=== PATIENT | male | born 1980 | race Asian ===

== ENCOUNTER 2020-09-05 13:38 | Emergency (ER) | payer MEDICAID, SELFPAY ==
[~2020-09-05] VITALS: Ht 172.7 cm; Wt 72.6 kg
[2020-09-05 13:39] VITALS: Ht 172.7 cm; Wt 72.6 kg
[2020-09-05 15:10] VITALS: BP 128/76
== END 2020-09-05 15:10 | disposition home or self-care (01) ==
LOC: ED 13:38
DX: U07.1 COVID-19 (principal); J40 Bronchitis, not specified as acute or chronic; I10 Essential (primary) hypertension
CPT/HCPCS: U0003